=== PATIENT | female | born 1995 | race Caucasian/White ===

== ENCOUNTER 2017-03-04 00:13 | Emergency (ER) | payer MEDICAID ==
[2017-03-04 00:31] VITALS: BP 103/69; RESP 18
[2017-03-04 00:59] LABS: RBC URINE 180 /hpf (0-3); URINE BILIRUBIN NEGATIVE (NEGATIVE); URINE BLOOD 2+ (NEGATIVE); URINE COLOR Yellow (YELLOW); URINE GLUCOSE (UA) NORMAL (Normal); URINE KETONE NEGATIVE (NEGATIVE); URINE LEUKOCYTE ESTERASE 3+ Leu/uL (Negative); URINE PROTEIN 2+ mg/dL (NEGATIVE); URINE UROBILINOGEN NORMAL mg/dL (0.2-1.0); WBC CLUMPS FEW /hpf; WBC URINE 936 /hpf (0-5)
--- NOTE | 2017-03-04 01:06 | C.PDOC ---
History Of Present Illness Patient presents to the ER with a complaint of dysuria worsening over the past 2 weeks, associated with increased frequency. Denies fever or chills. Time Seen by Provider: 03/04/17 01:04 Chief Complaint (Nursing): Female Genitourinary History Per: Patient History/Exam Limitations: no limitations Onset/Duration Of Symptoms: Days (2 weeks) Current Symptoms Are (Timing): Still Present Severity: Moderate Pain Scale Rating Of: 4 Quality Of Discomfort: Burning Associated Symptoms: denies: Fever, Chills Alleviating Factors: None Recent travel outside of the [place]: No Abnormal Vaginal Bleeding: No Past Medical History Reviewed: Historical Data, Nursing Documentation, Vital Signs Vital Signs: Last Vital Signs Temp 98.2 F 03/04/17 00:27 Pulse 74 03/04/17 00:27 Resp 18 03/04/17 00:27 BP 103/69 03/04/17 00:27 Pulse Ox 100 03/04/17 01:06 - Medical History PMH: No Chronic Diseases Surgical History: No Surg Hx Family History: States: No Known Family Hx - Social History Hx Alcohol Use: No Hx Substance Use: No - Immunization History Hx Pneumococcal Vaccination: No Review Of Systems Constitutional: Negative for: Fever, Chills Genitourinary: Positive for: Dysuria, Frequency Physical Exam - Physical Exam Appears: Non-toxic Skin: Warm, Dry Oral Mucosa: Moist Chest: Symmetrical, No Tenderness Cardiovascular: Rhythm Regular, No Murmur Respiratory: No Rales, No Rhonchi, No Wheezing Gastrointestinal/Abdominal: Soft, No Tenderness Neurological/Psych: Oriented x3 ED Course And Treatment O2 Sat by Pulse Oximetry: 100 Progress Note: Macrobid and pyridium administered. Disposition Counseled Patient/Family Regarding: Studies Performed, Diagnosis, Need For Followup - Disposition Referrals: [facility] [Outside] Disposition Time: 01:05 Condition: FAIR Prescriptions: Nitrofurantoin Macrocrystals [Macrobid] 1 cap PO BID #14 cap Phenazopyridine HCl [Pyridium] 200 mg PO TID #6 tablet Instructions: Urinary Tract Infection in Women (DC) - Clinical Impression Clinical Impression: UTI (urinary tract infection) - Scribe Statement The provider has reviewed the documentation as recorded by the Scribe Humberto Ayers All medical record entries made by the Scribe were at my direction and personally dictated by me. I have reviewed the chart and agree that the record accurately reflects my personal performance of the history, physical exam, medical decision making, and the department course for this patient. I have also personally directed, reviewed, and agree with the discharge instructions and disposition.
[2017-03-04 01:51] VITALS: PULSE 72; TEMP 98.6; O2SAT 99
== END 2017-03-04 01:30 | disposition home or self-care (01) ==
LOC: SUPCPDRO 00:13 → C.ER 00:13 → MERGE 00:13 → C.ER 01:30
DX: N39.0 Urinary tract infection, site not specified (principal)

== ENCOUNTER 2018-09-29 00:39 | Emergency (ER) | payer MEDICAID ==
--- NOTE | 2018-09-29 01:28 | C.PDOC ---
History Of Present Illness 23 year old female presents to the ER stating she took test 2 days ago which was positive and today started having some spotting and associated lower abdominal cramps. LMP 08/17/18, Time Seen by Provider: 09/29/18 01:02 Chief Complaint (Nursing): Female Genitourinary History Per: Patient History/Exam Limitations: no limitations Onset/Duration Of Symptoms: Hrs Current Symptoms Are (Timing): Still Present Quality Of Discomfort: Cramping Associated Symptoms: Other (Vaginal spotting) Alleviating Factors: None Recent travel outside of the [place]: No : 8 Para: 2 Past Medical History Reviewed: Historical Data, Nursing Documentation, Vital Signs Vital Signs: Last Vital Signs Temp 98.1 F 09/29/18 00:56 Pulse 81 09/29/18 00:56 Resp 16 09/29/18 00:56 BP 102/68 09/29/18 00:56 Pulse Ox 99 09/29/18 00:56 - [employer] Procedures 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 (05/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) 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 ASSIST DELIV NEC (05/14/14) Family History: States: Unknown Family Hx - Social History Hx Alcohol Use: No Hx Substance Use: No - Immunization History Hx Pneumococcal Vaccination: No Review Of Systems Constitutional: Negative for: Fever, Chills Cardiovascular: Negative for: Chest Pain, Palpitations Respiratory: Negative for: Cough, Shortness of Breath Gastrointestinal: Negative for: Nausea, Vomiting Genitourinary: Positive for: Other (Vaginal spotting) Neurological: Negative for: Weakness, Numbness Physical Exam - Physical Exam Appears: Non-toxic Skin: Normal Color, Warm, Dry Head: Atraumatic, Normacephalic Eye(s): bilateral: Normal Inspection Oral Mucosa: Moist Chest: Symmetrical, No Tenderness Cardiovascular: Rhythm Regular Respiratory: Normal Breath Sounds, No Rales, No Rhonchi, No Wheezing Gastrointestinal/Abdominal: Soft, No Tenderness Back: No CVA Tenderness Neurological/Psych: Oriented x3, Normal Speech ED Course And Treatment - Laboratory Results Result Diagrams: 09/29/18 01:56 09/29/18 01:56 O2 Sat by Pulse Oximetry: 99 (room air) Pulse Ox Interpretation: Normal - CT Scan/US Transvaginal US Other Rad Studies (CT/US): Read By Radiologist, Radiology Report Reviewed CT/US Interpretation: Obstetric ultrasound, first trimester. Indication: with pain and bleeding. Technique: Real-time ultrasound images were obtained. Findings: Single, intrauterine gestational sac with an estimated gestation age of 5 weeks and 4 days. Uterus and ovaries are normal. No pole is noted. Impression: Single intrauterine gestational sac. Medical Decision Making Medical Decision Making: Plan: * Blood work * Urinalysis * Transvaginal US Tranvaginal US result: Single intrauterine gestational sac. On re-evaluation patient sleeping on stretcher. Discussed results with patient and provide copy of lab and imaging reports. Patient expresses understanding. Counseling was provided regarding the diagnosis and prognosis. All questions answered and there is agreement with the plan to discharge home with instructi ons. Patient is stable for discharge. Advised to return if symptoms persist or worsen. Disposition Counseled Patient/Family Regarding: Studies Performed, Diagnosis, Need For Followup - Disposition [facility] Disposition: HOME/ ROUTINE Disposition Time: 04:51 Condition: GOOD Additional Instructions: Your labs were normal and Ultrasound shows you are 5 weeks 4 days. 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 - Scribe Statement The provider has reviewed the documentation as recorded by the Scribxiomara Ayers All medical record entries made by the Scribxiomara were at my direction and personally dictated by me. I have reviewed the chart and agree that the record accurately reflects my personal performance of the history, physical exam, medical decision making, and the department course for this patient. I have also personally directed, reviewed, and agree with the discharge instructions and disposition.
[2018-09-29 01:59] LABS: BASO # 0.1 K/uL (0.0-0.2); BASO % 0.5 % (0.0-2.0); EOS # 0.1 K/uL (0.0-0.7); EOS % 0.7 % (0.0-4.0); HEMOGLOBIN 12.4 g/dL (11.0-16.0); LYMPH # 3.1 K/uL (1.0-4.3); LYMPH % 29.8 % (20.0-40.0); MEAN CELL VOLUME 79.5 fL (81.0-99.0); MEAN CORPUSCULAR HGB CONC 32.7 g/dL (33.0-37.0); MEAN PLATELET VOLUME 10.5 fL (7.2-11.7); MONO # 0.7 K/uL (0.0-0.8); MONO % 7.1 % (0.0-10.0); NEUT # 6.5 K/uL (1.8-7.0); NEUT % 61.9 % (50.0-75.0); NRBC % 0.1 % (0.0-2.0); RBC 4.77 Mil/uL (3.80-5.20); RED CELL DISTRIBUTION WIDTH 15.7 % (11.5-14.5); WHITE BLOOD COUNT 10.5 K/uL (4.8-10.8)
[2018-09-29 02:07] LABS: ALB/GLOB RATIO 1.5 (1.0-2.1); ALBUMIN 4.3 g/dL (3.5-5.0); ALT/SGPT 18 U/L (9-52); AST/SGOT 21 U/L (14-36); BLOOD UREA NITROGEN 13 mg/dL (7-17); CALCIUM 8.8 mg/dl (8.6-10.4); GFR NON-AFRICAN AMERICAN > 60
[2018-09-29 02:16] LABS: SQUAMOUS EPITHIAL 4 /hpf (0-5); URINE BILIRUBIN NEGATIVE (NEGATIVE); URINE BLOOD 3+ (NEGATIVE); URINE CLARITY Clear (Clear); URINE COLOR Yellow (YELLOW); URINE GLUCOSE (UA) NORMAL (Normal); URINE LEUKOCYTE ESTERASE NEG Leu/uL (Negative); URINE PROTEIN 1+ mg/dL (NEGATIVE)
[2018-09-29 02:19] LABS: HCG,QUALITATIVE URINE POSITIVE (NEGATIVE)
[2018-09-29 04:51] VITALS: BP 120/73; PULSE 80; RESP 14; TEMP 98.7
[2018-09-29 04:52] VITALS: O2SAT 99
--- NOTE | 2018-09-29 11:32 | US ---
Date of service: 09/29/2018 PROCEDURE: OB Pelvic Ultrasound HISTORY: preg w. pain and bleeding LMP: 08/17/2018 COMPARISON: None available. FINDINGS: UTERUS: Gestational sac: 1 x 1.5 x 1.4 centimeter irregular shaped intrauterine gestational sac Heart rate: Not visualized. age (Ultrasound estimated): No pole is noted. [place]-gestational hemorrhage: No definite evidence of subchorionic hemorrhage Date of delivery (Ultrasound estimated) : 05/28/2019 Uterus measures 8.8 x 4.7 x 4.8 cm. Normal in size and appearance. CERVIX: Measures 3.7 cm. Long and closed. No cervical abnormality seen. RIGHT OVARY: Measures 3.2 x 1.9 x 2.6 cm. No mass lesion. Normal flow. LEFT OVARY: Measures 2.6 x 1.8 x 2.4 cm. No solid mass. Normal flow. FREE FLUID: None. OTHER FINDINGS: None. IMPRESSION: Irregular border intrauterine gestational sac measures 1.9 x 1 x 1.1 centimeter which corresponding to gestational age of 5 weeks 4 days. No pole or yolk sac noted. Findings may represent failed . Correlation with beta HCG level and if indicated follow-up reassessment is suggested. Preliminary report was submitted by [facility] Radiology contains concordant findings.
== END 2018-09-29 04:51 | disposition home or self-care (01) ==
LOC: C.ER 00:39
DX: O46.91 Antepartum hemorrhage, unspecified, first trimester (principal); Z3A.01 Less than 8 weeks gestation of pregnancy